=== PATIENT | male | born 1965 | race African-American/Black ===

== ENCOUNTER 2024-07-28 15:00 | Inpatient (IN) | payer OTHER ==
[2024-07-28 15:21] VITALS: BMI 23.9
[2024-07-28] MEDS ORDERED: BENZOCAINE/MENTHOL (CHLORASEPTIC ) LOZENGE MM PRN (15:30)
[2024-07-28] MEDS ORDERED: MAG HYDROX/AL HYDROX/SIMETH 30 ML UNIT-DOSE CUP PO PRN (15:30)
[2024-07-28] MEDS ORDERED: BENZONATATE 200 MG CAPSULE PO PRN (15:30)
[2024-07-28] MEDS ORDERED: IBUPROFEN 600 MG TABLET (FP) PO PRN (15:30)
[2024-07-28] MEDS ORDERED: IBUPROFEN 400 MG TABLET (FP) PO PRN (15:30)
[2024-07-28] MEDS ORDERED: POLYETHYLENE GLYCOL (HEALTHYLAX) 3350 17 GM PACKET PO PRN (15:30)
[2024-07-28] MEDS ORDERED: ACETAMINOPHEN 325 MG TABLET (FP) PO PRN (15:30)
[2024-07-28] MEDS ORDERED: guaiFENesin 600 MG TABLET.ER (FP) PO PRN (15:30)
[2024-07-28] MEDS ORDERED: DICYCLOMINE HCL 10 MG CAPSULE PO PRN (15:30)
[2024-07-28] MEDS ORDERED: NALOXONE (NARCAN) HCL 4 MG/0.1 ML SPRAY NS PRN (15:30)
[2024-07-28] MEDS ORDERED: MAGNESIUM HYDROX 2400MG/30ML ORAL SUSPENSION 30 ML CUP PO PRN (15:30)
[2024-07-28] MEDS ORDERED: ONDANSETRON *ODT* 4 MG TABLET SL PRN (15:30)
[2024-07-28] MEDS ORDERED: NICOTINE POLACRILEX 2 MG GUM BUC PRN (15:30)
[2024-07-28] MEDS ORDERED: chlordiazePOXIDE HCL 25 MG CAPSULE PO PRN (15:30)
[2024-07-28] MEDS: NALTREXONE HCL 50 MG TABLET PO ONE (17:46)
[2024-07-28] MEDS: BISMUTH SUBSALICYLATE 262 MG/15 ML BTL PO PRN (20:00)
[2024-07-28] MEDS: LOPERAMIDE HCL 2 MG CAPSULE PO PRN (20:52)
[2024-07-28] MEDS: THIAMINE 100 MG TABLET PO SCH (22:49)
[2024-07-28] MEDS: MELATONIN 5 MG TABLETS PO SCH (22:50)
[2024-07-28] MEDS: MIRTAZAPINE 15 MG TABLET (FP) PO SCH (22:50)
[2024-07-28] MEDS: METHOCARBAMOL 500 MG TABLET PO PRN (22:52)
[2024-07-28] MEDS: hydrOXYzine PAMOATE 25 MG CAPSULE (FP) PO PRN (22:52)
[2024-07-28] MEDS: chlordiazePOXIDE HCL 25 MG CAPSULE PO SCH (22:52)
[2024-07-29] MEDS: BICTEGRAV/EMTRICIT/TENOFOV (BIKTARVY) 50-200-25 MG TABLET PO SCH (07:58)
[2024-07-29] MEDS: NALTREXONE HCL 50 MG TABLET PO SCH (10:23)
[2024-07-29] MEDS: PRENATAL VITAMINS W/ FOLIC ACID TABLET (FP) PO SCH (10:23)
[2024-07-29 11:13] LABS: HEMATOCRIT 39.8 % (40.1-51.0); HEMOGLOBIN 12.6 g/dL (13.7-17.5); MCHC 31.7 g/dl (32.3-36.5); MEAN CELL VOLUME 86.1 fl (79.0-92.2); MEAN PLT VOLUME 10.1 fl (9.4-12.4); PLATELET COUNT 176 x10^3/uL (163-337); RDW 14.5 % (12.2-16.1)
[2024-07-29 11:17] LABS: CHLORIDE 112 mmol/L (98-107); POTASSIUM 3.8 mmol/L (3.5-5.1); SODIUM 142 mmol/L (136-145)
[2024-07-29 11:29] LABS: ALBUMIN 3.1 g/dl (3.4-5.0); CALCIUM 9.5 mg/dL (8.5-10.1)
[2024-07-29 11:30] LABS: ANION GAP 6 mmol/L (4-13); BLOOD UREA NITROGEN 16.6 mg/dL (7-18); CO2 25 mmol/L (21-32); GLUCOSE,RANDOM 77 mg/dL (74-106)
[2024-07-29 11:31] LABS: SGPT/ALT 14 U/L (13-61)
[2024-07-29 11:32] LABS: SGOT/AST 15 U/L (15-37)
[2024-07-29 11:33] LABS: TOT PROT 5.9 g/dl (6.4-8.2)
[2024-07-29 11:34] LABS: ALK PHOS 88 U/L (45-117)
[2024-07-29 11:36] LABS: BILIRUBIN,TOTAL 0.5 mg/dL (0.2-1); CREATININE 0.8 mg/dL (0.55-1.3)
[2024-07-30] MEDS: chlordiazePOXIDE HCL 25 MG CAPSULE PO SCH (06:00)
[2024-07-30 12:52] VITALS: BP 103/70; PULSE 84; RESP 18; TEMP 97.7
[2024-07-31] MEDS ORDERED: chlordiazePOXIDE HCL 10 MG CAPSULE PO PRN
[2024-07-31] MEDS ORDERED: chlordiazePOXIDE HCL 10 MG CAPSULE PO SCH (05:00)
[2024-08-01] MEDS ORDERED: chlordiazePOXIDE HCL 10 MG CAPSULE PO SCH (05:00)
[2024-08-02] MEDS ORDERED: chlordiazePOXIDE HCL 10 MG CAPSULE PO ONE (05:00)
== END 2024-07-30 13:50 | disposition home or self-care (01) | DRG 774 ==
LOC: YASAS 15:00 → Y6N 16:21
PROVIDERS: ADMIT Allergy & Immunology; ATTEND Family Medicine Addiction Medicine
PROC: HZ2ZZZZ Detoxification Services for Substance Abuse Treatment (ICD-10-PCS; principal; 2024-07-28)
DX: F10.230 Alcohol dependence with withdrawal, uncomplicated (principal); F14.20 Cocaine dependence, uncomplicated; F17.210 Nicotine dependence, cigarettes, uncomplicated; F32.A Depression, unspecified; B20 Human immunodeficiency virus [HIV] disease; G99.0 Autonomic neuropathy in diseases classified elsewhere; G47.00 Insomnia, unspecified; Z99.89 Dependence on other enabling machines and devices; Z79.899 Other long term (current) drug therapy
CPT/HCPCS: 36415; 80053; 80305; 80307; 85027; 86359; 86360; 86780; 93005; 93010